=== PATIENT | male | born 1955 | race Caucasian/White ===

== ENCOUNTER → 2016-09-19 | Outpatient (CLI) | payer BC ==
[~2016-09-19] MED LIST: CPR500 PO; MULT-221 PO
[2016-09-19 13:59] LABS: BASO % 0.3 %; BASO ABS # 0.02 K/uL (0-0.2); COMPLETE YES; EOS % 1.7 %; IG% 0.1 %; LYMPH % 27.5 %; LYMPH ABS # 1.91 K/uL (1.2-3.4); MEAN CELL VOLUME 90.1 fL (80-100); MEAN CORPUSCULAR HEMOGLOBIN 31.3 pg (25-34); MEAN CORPUSCULAR HGB CONC 34.8 g/dl (32-36); MEAN PLATELET VOLUME 11.7 fL (7.4-10.4); MONO % 8.6 %; NEUT % 61.8 %; PLATELET COUNT 237 K/uL (130-400); RED BLOOD COUNT 5.33 M/uL (4.7-6.1); WHITE BLOOD COUNT 6.94 K/uL (4.8-10.8)
[2016-09-19 14:37] LABS: ALKALINE PHOSPHATASE 108 U/L (45-117); ALT/SGPT 31 U/L (12-78); BLOOD UREA NITROGEN 10 mg/dl (7-18); BUN/CREATININE RATIO 9.1 (10-20); CALCIUM 9.3 mg/dl (8.5-10.1); CARBON DIOXIDE 31 mmol/L (21-32); CHLORIDE 101 mmol/L (98-107); CHOLESTEROL 195 mg/dl (0-200); CHOLESTEROL/HDL RATIO 5.6; GLUCOSE 106 mg/dl (70-99); HDL CHOLESTEROL 35 mg/dl; LDL CHOLESTEROL CALCULATED 94 mg/dl; POTASSIUM 4.6 mmol/L (3.5-5.1); SODIUM 140 mmol/L (136-145); TRIGLYCERIDES 329 mg/dl (0-150); VERY LOW DENSITY LIPOPROT CALC 66 mg/dl
[2016-09-19 14:39] LABS: ALB/GLOB RATIO 1.1 (0.9-2); AST/SGOT 20 U/L (15-37)
== END | disposition home or self-care (01) ==
LOC: C.LABSPEC 13:34
PROVIDERS: ATTEND Family Medicine
DX: I10 Essential (primary) hypertension (principal); E78.2 Mixed hyperlipidemia

== ENCOUNTER 2017-05-11 13:08 | Emergency (ER) | payer BC ==
[~2017-05-11] VITALS: Ht 180.3 cm; Wt 85.3 kg
[2017-05-11 13:21] VITALS: Ht 180.3 cm; Wt 85.3 kg
--- NOTE | 2017-05-11 13:48 | EMERGENCY ROOM VISIT NOTE ---
History First contact with patient: 13:29 Chief Complaint: ABDOMINAL PAIN Stated Complaint: STOMACH PAIN, UNABLE TO MOVE BOWELS History of Present Illness The patient is a 62 year old male who presents to the Emergency Room with complaints of lower abdominal pain associated with constipation. The patient states he has not moved his bowels in 5 days. He does have a history of diverticulitis, and states his pain is consistent with that previous infection. The patient states the constipation started, then he began experiencing lower abdominal pain last night. He did try taking Maalox, and that did allow him to pass gas, however he only moved clear, slightly slimy liquid from his bowels. He did vomit twice, but states last night it was associated with eating, and this morning it was associated with gagging himself while brushing his teeth. The patient describes the pain as suprapubic, and states it is sharp in nature. He has taken no medication for his pain. He admits to chills, but denies any fever. The patient denies any chest pain, difficulty breathing, urinary symptoms including dysuria, retention, or discharge in his urine. The patient denies any recent diarrhea, upper respiratory infection symptoms, or cough. Review of Systems A complete 10 point review of systems was reviewed with the patient with pertinent positives and negatives as per history of present illness. All else were negative. Social History Smoking Status: Current Every Day Smoker Alcohol Use: none Drug Use: none Marital Status: Housing Status: lives with family Occupation Status: retired Current/Historical Medications Scheduled Atorvastatin (Atorvastatin Calcium), 10 MG PO DAILY Ciprofloxacin Hcl (Cipro), 500 MG PO BID Lisinopril (Lisinopril), 40 MG PO DAILY Metronidazole (Flagyl), 500 MG PO TID Ondasetron Odt (Zofran Odt), 4 MG SL Q6H Scheduled PRN Meclizine HCl (Meclizine HCl), 25 MG PO TID PRN for Muscle Spasms Allergies Coded Allergies: No Known Allergies (Unverified , 12/01/14) Physical Exam Vital Signs Date Time Temp Pulse Resp B/P (MAP) Pulse Ox O2 Delivery O2 Flow Rate FiO2 05/11/17 17:00 37.1 88 18 121/62 98 05/11/17 16:19 92 18 121/62 Room Air 05/11/17 15:05 68 18 140/74 98 Room Air 05/11/17 13:21 37.5 115 18 136/80 91 Room Air Physical Exam VITALS: Vitals are noted on the nurse's note and reviewed by myself. Vital signs stable. GENERAL: This is a 62-year-old obese white male, in no acute distress, nondiaphoretic, well-developed well-nourished. SKIN: The skin was without rashes, erythema, edema, or bruising. There is no tenting of the skin. Capillary reflex less than 2 seconds. HEAD: Normocephalic atraumatic. EARS: External auditory canals clear, tympanic membranes pearly hunter without erythema or effusion bilaterally. EYES: Pupils equal round and reactive to light and accommodation. Conjunctivae without injection, sclerae without icterus. Extraocular movements intact. NOSE: Patent, turbinates without inflammation or discharge. No sinus tenderness. MOUTH: Mucous membranes moist. Tonsils are not enlarged. Pharynx without erythema or exudate. Uvula midline. Airway patent. Tongue does not deviate. NECK: Supple without nuchal rigidity. No lymphadenopathy. No thyromegaly. Cervical spine is nontender. No JVD. HEART: Regular rate and rhythm without murmurs gallops or rubs. LUNGS: Clear to auscultation bilaterally without wheezes, rales or rhonchi. No dullness to percussion. No retractions or accessory muscle use. ABDOMEN: Positive, but hypoactive, bowel sounds x 4. Normal tympanic percussion. Firm in the lower abdomen and tender to palpation. The upper abdomen was soft and nontender. The entire abdomen was without masses or organomegaly. Scott sign negative. No guarding or rebound tenderness. MUSCULOSKELETAL: No muscle atrophy, erythema, or edema noted. Full range of motion without joint tenderness in all extremities. No tenderness to palpation. Normal gait. Strength 5/5 throughout. NEURO: Patient was alert and oriented to person place and time. Normal sensation to light and sharp touch. Deep tendon reflexes 2+ throughout. No focal neurological deficits. Medical Decision & Procedures ER Provider Diagnostic Interpretation: CBC was without significant leukocytosis, anemia, thrombocytopenia. CMP does not show any significant electrolyte abnormality. Renal and hepatic function were normal. Lipase was negative. Urinalysis does appear to be contaminated, however does not show absolute signs of urinary tract infection. The patient does have trace ketones, trace blood, mucus, and epithelial cells. I do feel that this is related to the patient's dehydration, as he admits to not drinking much over the past few days. CT ABD/PELVIS WITH IV AND PO CONTRAST: ABD/PELVIS IV AND ORAL CONT CT DOSE: 394.68 mGy.cm HISTORY: Pain lower abdominal pain, constipation, hx. Diverticulitis TECHNIQUE: Multiaxial CT images of the abdomen and pelvis were performed following the use of intravenous and oral contrast. A dose lowering technique was utilized adhering to the principles of ALARA. COMPARISON STUDY: 12/01/2014 FINDINGS: Mild bibasilar dependent atelectasis. Liver spleen and pancreas appear unremarkable. Lower pole right renal cyst as well as a indeterminate 1 cm nodular density lower aspect right kidney posteriorly. This is unchanged. The bowel pattern indicates acute sigmoid diverticulitis. Considerable wall thickening. There is a least moderate pericolonic infiltrative change. There is no evidence for abscess collection or obstructive change. No significant bowel distention IMPRESSION: 1. Acute sigmoid diverticulitis. 2. No evidence for abscess collection or obstruction. 3. Right renal cyst as well as an indeterminate 1 cm nodular density right renal inferior margin which has remained unchanged from the prior study. The above report was generated using voice recognition software. It may contain grammatical, syntax or spelling errors. Electronically signed by: Derrick Segal M.D. 05/11/2017 4:21 PM Dictated Date/Time: 05/11/2017 4:10 PM Laboratory Results 05/11/17 13:57 Red Blood Count 5.31, Mean Corpuscular Volume 89.3, Mean Corpuscular Hemoglobin 31.1, Mean Corpuscular Hemoglobin Concent 34.8, Mean Platelet Volume 11.4, Neutrophils (%) (Auto) 85.2, Lymphocytes (%) (Auto) 6.5, Monocytes (%) (Auto) 7.6, Eosinophils (%) (Auto) 0.1, Basophils (%) (Auto) 0.2, Neutrophils # (Auto) 9.25, Lymphocytes # (Auto) 0.71, Monocytes # (Auto) 0.82, Eosinophils # (Auto) 0.01, Basophils # (Auto) 0.02 05/11/17 13:57 Test 05/11/17 13:57 05/11/17 14:00 White Blood Count 10.85 K/uL (4.8-10.8) Red Blood Count 5.31 M/uL (4.7-6.1) Hemoglobin 16.5 g/dL (14.0-18.0) Hematocrit 47.4 % (42-52) Mean Corpuscular Volume 89.3 fL (80-100) Mean Corpuscular Hemoglobin 31.1 pg (25-34) Mean Corpuscular Hemoglobin Concent 34.8 g/dl (32-36) Platelet Count 202 K/uL (130-400) Mean Platelet Volume 11.4 fL (7.4-10.4) Neutrophils (%) (Auto) 85.2 % Lymphocytes (%) (Auto) 6.5 % Monocytes (%) (Auto) 7.6 % Eosinophils (%) (Auto) 0.1 % Basophils (%) (Auto) 0.2 % Neutrophils # (Auto) 9.25 K/uL (1.4-6.5) Lymphocytes # (Auto) 0.71 K/uL (1.2-3.4) Monocytes # (Auto) 0.82 K/uL (0.11-0.59) Eosinophils # (Auto) 0.01 K/uL (0-0.5) Basophils # (Auto) 0.02 K/uL (0-0.2) RDW Standard Deviation 45.2 fL (36.4-46.3) RDW Coefficient of Variation 13.9 % (11.5-14.5) Immature Granulocyte % (Auto) 0.4 % Immature Granulocyte # (Auto) 0.04 K/uL (0.00-0.02) Anion Gap 6.0 mmol/L (3-11) Est Creatinine Clear Calc Drug Dose 72.2 ml/min Estimated GFR () 80.3 Estimated GFR (Non- 69.3 BUN/Creatinine Ratio 7.2 (10-20) Calcium Level 9.0 mg/dl (8.5-10.1) Total Bilirubin 0.8 mg/dl (0.2-1) Aspartate Amino Transf (AST/SGOT) 10 U/L (15-37) Alanine Aminotransferase (ALT/SGPT) 21 U/L (12-78) Alkaline Phosphatase 113 U/L (45-117) Total Protein 7.9 gm/dl (6.4-8.2) Albumin 3.8 gm/dl (3.4-5.0) Globulin 4.1 gm/dl (2.5-4.0) Albumin/Globulin Ratio 0.9 (0.9-2) Lipase 86 U/L (73-393) Urine Color ORANGE Urine Appearance CLOUDY (CLEAR) Urine pH >= 9.0 (4.5-7.5) Urine Specific [place] 1.022 (1.000-1.030) Urine Protein 2+ (NEG) Urine Glucose (UA) NEG (NEG) Urine Ketones TRACE (NEG) Urine Occult Blood TRACE (NEG) Urine Nitrite NEG (NEG) Urine Bilirubin NEG (NEG) Urine Urobilinogen NEG (NEG) Urine Leukocyte Esterase TRACE (NEG) Urine WBC (Auto) 1-5 /hpf (0-5) Urine RBC (Auto) 10-30 /hpf (0-4) Urine Hyaline Casts (Auto) 5-10 /lpf (0-5) Urine Epithelial Cells (Auto) >30 /lpf (0-5) Urine Bacteria (Auto) NEG (NEG) Urine Renal Epithelial Cells /lpf (0-5) Urine Pathogenic Casts /lpf (0) Urine Mucus PRESENT (NONE PRSENT) Urine Yeast (Auto) (NONE PRSENT) Medications Administered Medications (Trade) Dose Ordered Sig/Ruslan Route Start Time Stop Time Status Last Admin Dose Admin Ciprofloxacin (Cipro Tab) 500 mg NOW STAT PO 05/11/17 16:36 05/11/17 16:41 DC 05/11/17 16:57 500 MG Metronidazole (Flagyl Tab) 500 mg NOW STAT PO 05/11/17 16:36 05/11/17 16:41 DC 05/11/17 16:56 500 MG Medical Decision The patient presents today complaining of lower abdominal pain associated with constipation 5 days. He does have a history of diverticulitis, and as he does not believe his previous history of diverticulitis was associated with the patient, he does feel that this symptoms are similar. Based on his labs, examination, and CT scan, I do feel that this is an acute diverticulitis. He scan did not reveal any abscess, and the patient does not appear to be septic or systemically ill. I had a lengthy discussion with the patient and his at bedside regarding proper management at this time. I offered admission versus outpatient treatment with oral antibiotics. The patient and his do feel comfortable managing this outpatient at this time, and I feel that this is appropriate given the patient's very mild elevated white blood cell count and no abscess on CT scan. The patient was given his first dose of Flagyl and Cipro in the emergency department. Throughout the course of his care, I did offer pain medication, and he declined. Prescriptions were sent, and discharge instructions were reviewed. The patient was discharged home in good condition. I did discuss findings of right renal cyst and nodular density of the right renal inferior margin with the patient. I advised him that this is unchanged from his previous study. I did encourage outpatient follow-up with his PCP. I did discuss the case with my attending, Dr. Freeman, who is in agreement with the assessment and plan. Differential diagnosis includes diverticulitis, bowel obstruction, gastroenteritis, urinary tract infection, appendicitis, cholecystitis, pancreatitis, malignancy, and others I attest that I have personally reviewed the patient's current medication list. Patient was found to have normal blood pressure on screening and does not require follow-up. Impression Primary Impression: Diverticulitis Departure Information Dispostion Home / Self-Care Condition GOOD Prescriptions Ondasetron Odt (ZOFRAN ODT) 4 Mg Tab 4 MG SL Q6H for Nausea, #6 TAB Prov: Rosa Marie PA-C 05/11/17 Metronidazole (Flagyl) 500 Mg Tab 500 MG PO TID for 10 Days, #30 TAB Prov: Rosa Marie PA-C 05/11/17 Ciprofloxacin Hcl (CIPRO) 500 Mg Tab 500 MG PO BID for 10 Days, #20 TAB Prov: Rosa Marie PA-C 05/11/17 Referrals Jose David Sung M.D. ([facility] (PCP) Patient Instructions ED Diverticulitis, My [facility] Additional Instructions You were seen in the emergency department today for diverticulitis. CT scan did confirm this diagnosis and did rule out abscess or obstruction. Please take Cipro and Flagyl as prescribed for 10 days. All antibiotics can potentially cause diarrhea. He may want to consider a probiotic to help. Do not drink alcohol while taking these antibiotics. You were prescribed Zofran to be used for nausea and/or vomiting. Please take this medication as prescribed. He may use Tylenol 500-1000 mg every 6-8 hours for pain. Please do not exceed 3000mg daily. Please consume only a clear liquid diet for at least the next 2-3 days, or until you're not experiencing any further abdominal discomfort. If you experience worsening pain, fever, chills, nausea, vomiting, blood or pus in your stool, or other concerning symptoms, return immediately to the emergency department for further evaluation. Please follow up with your PCP in 2-3 days for recheck of your symptoms. Work Instructions Return To Work: 2 days Problem Qualifiers Primary Impression: Diverticulitis Diverticulitis site: large intestine Diverticulitis bleeding: without bleeding Diverticulitis complication: without perforation or abscess Qualified Codes: K57.32 - Diverticulitis of large intestine without perforation or abscess without bleeding
[2017-05-11] MEDS ORDERED: OPTIRAY 320 IV PRN (14:15)
[2017-05-11 14:17] LABS: BASO % 0.2 %; BASO ABS # 0.02 K/uL (0-0.2); COMPLETE YES; EOS % 0.1 %; HEMATOCRIT 47.4 % (42-52); IG% 0.4 %; LYMPH % 6.5 %; LYMPH ABS # 0.71 K/uL (1.2-3.4); MEAN CELL VOLUME 89.3 fL (80-100); MEAN CORPUSCULAR HEMOGLOBIN 31.1 pg (25-34); MEAN CORPUSCULAR HGB CONC 34.8 g/dl (32-36); MEAN PLATELET VOLUME 11.4 fL (7.4-10.4); MONO % 7.6 %; NEUT % 85.2 %; PLATELET COUNT 202 K/uL (130-400); RED BLOOD COUNT 5.31 M/uL (4.7-6.1); WHITE BLOOD COUNT 10.85 K/uL (4.8-10.8)
[2017-05-11 14:17] LABS: URINE APPEARANCE CLOUDY (CLEAR); URINE COLOR ORANGE; URINE EPITHELIAL CELL AUTO >30 /lpf (0-5); URINE NITRITE NEG (NEG); URINE PH >= 9.0 (4.5-7.5); URINE SPECIFIC GRAVITY 1.022 (1.000-1.030); UROBILINOGEN NEG (NEG); ZZUR CULT IF INDIC CLEAN CATCH YES
[2017-05-11 14:28] LABS: MANUAL MICROSCOPIC REQUIRED? NO; REVIEW REQ? YES; SULFASALICYLIC ACID POS (NEG); URINE BILIRUBIN NEG (NEG)
[2017-05-11 14:29] LABS: URINE MUCUS PRESENT (NONE PRSENT)
[2017-05-11 14:42] LABS: BUN/CREATININE RATIO 7.2 (10-20); CREATININE 1.13 mg/dl (0.60-1.40); POTASSIUM 4.1 mmol/L (3.5-5.1)
[2017-05-11 14:45] LABS: ALB/GLOB RATIO 0.9 (0.9-2)
[2017-05-11] MEDS ORDERED: LSN40 PO (14:55)
[2017-05-11] MEDS ORDERED: ANT25 PO (14:55)
[2017-05-11] MEDS ORDERED: LPT10 PO (14:55)
--- NOTE | 2017-05-11 16:22 | DIAGNOSTIC IMAGING REPORT ---
ABD/PELVIS IV AND ORAL CONT CT DOSE: 394.68 mGy.cm HISTORY: Pain lower abdominal pain, constipation, hx. Diverticulitis TECHNIQUE: Multiaxial CT images of the abdomen and pelvis were performed following the use of intravenous and oral contrast. A dose lowering technique was utilized adhering to the principles of ALARA. COMPARISON STUDY: 12/01/2014 FINDINGS: Mild bibasilar dependent atelectasis. Liver spleen and pancreas appear unremarkable. Lower pole right renal cyst as well as a indeterminate 1 cm nodular density lower aspect right kidney posteriorly. This is unchanged. The bowel pattern indicates acute sigmoid diverticulitis. Considerable wall thickening. There is a least moderate pericolonic infiltrative change. There is no evidence for abscess collection or obstructive change. No significant bowel distention IMPRESSION: 1. Acute sigmoid diverticulitis. 2. No evidence for abscess collection or obstruction. 3. Right renal cyst as well as an indeterminate 1 cm nodular density right renal inferior margin which has remained unchanged from the prior study. The above report was generated using voice recognition software. It may contain grammatical, syntax or spelling errors. Electronically signed by: Derrick Segal M.D. 05/11/2017 4:21 PM Dictated Date/Time: 05/11/2017 4:10 PM
[2017-05-11] MEDS ORDERED: CIPROFLOXACIN 500 MG TAB PO STA (16:36)
[2017-05-11] MEDS ORDERED: METRONIDAZOLE 250 MG TAB PO STA (16:36)
[2017-05-11] MEDS ORDERED: METR-163 PO (16:42)
[2017-05-11] MEDS ORDERED: CIPR-255 PO (16:42)
[2017-05-11] MEDS ORDERED: ONDA4TAB10 SL (16:44)
[2017-05-11 17:00] VITALS: BP 121/62; PULSE 88; TEMP 37.1; O2SAT 98
== END 2017-05-11 17:02 | disposition home or self-care (01) ==
LOC: C.EDB 13:11 → C.EDC 17:02
DX: K57.32 Diverticulitis of large intestine without perforation or abscess without bleeding (principal); F17.210 Nicotine dependence, cigarettes, uncomplicated; Z79.899 Other long term (current) drug therapy

== ENCOUNTER → 2017-10-21 | Outpatient (CLI) | payer BC ==
[~2017-10-21] MED LIST changes: +ANT25 PO; +CIPR-255 PO; -CPR500 PO; +LPT10 PO; +LSN40 PO; -MULT-221 PO; +ONDA4TAB10 SL
[2017-10-21 14:11] LABS: BASO % 0.4 %; BASO ABS # 0.02 K/uL (0-0.2); EOS % 1.9 %; HEMATOCRIT 46.9 % (42-52); IG# 0.01 K/uL (0.00-0.02); LYMPH % 34.2 %; LYMPH ABS # 1.79 K/uL (1.2-3.4); MEAN CELL VOLUME 89.2 fL (80-100); MEAN CORPUSCULAR HEMOGLOBIN 30.4 pg (25-34); MEAN CORPUSCULAR HGB CONC 34.1 g/dl (32-36); MEAN PLATELET VOLUME 11.5 fL (7.4-10.4); MONO % 8.6 %; MONO ABS # 0.45 K/uL (0.11-0.59); NEUT % 54.7 %; NEUT ABS # 2.86 K/uL (1.4-6.5); PLATELET COUNT 238 K/uL (130-400); RED CELL DISTRIBUTION WIDTH SD 45.4 fL (36.4-46.3); WHITE BLOOD COUNT 5.23 K/uL (4.8-10.8)
[2017-10-21 14:48] LABS: ALBUMIN 3.6 gm/dl (3.4-5.0); ALT/SGPT 28 U/L (12-78); AST/SGOT 16 U/L (15-37); BLOOD UREA NITROGEN 10 mg/dl (7-18); CARBON DIOXIDE 32 mmol/L (21-32); CREATININE 1.03 mg/dl (0.60-1.40); GLUCOSE 103 mg/dl (70-99); POTASSIUM 4.2 mmol/L (3.5-5.1); SODIUM 135 mmol/L (136-145)
[2017-10-21 14:51] LABS: ALKALINE PHOSPHATASE 103 U/L (45-117); CHOLESTEROL 220 mg/dl (0-200); LDL CHOLESTEROL CALCULATED 139 mg/dl; TOTAL PROTEIN 7.4 gm/dl (6.4-8.2)
== END | disposition home or self-care (01) ==
LOC: C.LABSPEC 13:00
PROVIDERS: ATTEND Family Medicine
DX: E78.2 Mixed hyperlipidemia (principal); I10 Essential (primary) hypertension

== ENCOUNTER 2017-11-10 18:02 | Emergency (ER) | payer BC ==
[~2017-11-10] VITALS: Ht 180.3 cm; Wt 86.7 kg
[2017-11-10 18:14] VITALS: TEMP 36.9; Ht 180.3 cm; Wt 86.7 kg
[2017-11-10 18:35] VITALS: O2SAT 93
--- NOTE | 2017-11-10 18:40 | EMERGENCY ROOM VISIT NOTE ---
History Report prepared by Kelley: Lisa Whiting Under the Supervision of: Jorge LunaO. First contact with patient: 18:17 Chief Complaint: SHORTNESS OF BREATH Stated Complaint: SOB,VISION PROBLEM,BP HIGH History of Present Illness The patient is a 62 year old male who presents to the Emergency Room with complaints of persistent vision problems which began this morning. He reports that this morning when he woke up, he was having difficulty focusing his vision , noting that the left eye was worse than right. The patient states that his symptoms resolved on their own, until several hours later when he was doing yard work with his neighbor, stating that the vision problems returned and resolved on their own again. He denies any nausea, headaches, chest pain, or weakness in his arms or legs. The patient states that he has not had any energy lately, noting that he has been sleeping much more than usual and has been experiencing intermittent neck and pain in his right leg. He reports a history high cholesterol and hypertension, noting that he experiences frequent shortness of breath but thinks that is related to him smoking a pack of cigarettes a day. The patient denies a history of strokes. Source of History: patient Onset: this morning Position: eye (left) Quality: other (vision problems) Timing: other (persistent) Associated Symptoms: + SOB, No headache, No chest pain, No nausea, No weakness Review of Systems See HPI for pertinent positives & negatives. A total of 10 systems reviewed and were otherwise negative. Past Medical & Surgical Medical Problems: (1) High cholesterol (2) Hypertension Surgical Problems: (1) History of appendectomy (2) History of tonsillectomy Family History Cancer Diabetes mellitus Heart disease Hypertension Lung disease Social History Smoking Status: Current Every Day Smoker Alcohol Use: none Drug Use: none Marital Status: Housing Status: lives with family Occupation Status: retired Current/Historical Medications Scheduled Atorvastatin (Lipitor), 10 MG PO DAILY Ciprofloxacin Hcl (Cipro), 500 MG PO BID Lisinopril (Lisinopril), 40 MG PO DAILY Ondasetron Odt (Zofran Odt), 4 MG SL Q6H Scheduled PRN Meclizine HCl (Meclizine HCl), 25 MG PO TID PRN for Muscle Spasms Allergies Coded Allergies: No Known Allergies (Unverified , 5/21/15) Physical Exam Vital Signs Date Time Temp Pulse Resp B/P (MAP) Pulse Ox O2 Delivery O2 Flow Rate FiO2 11/10/17 20:26 64 19 173/99 94 11/10/17 19:14 68 20 174/93 95 Room Air 11/10/17 18:35 93 Room Air 11/10/17 18:35 Room Air 11/10/17 18:25 82 11/10/17 18:14 36.9 79 20 187/88 95 Room Air Physical Exam GENERAL: Patient is awake, alert, and in no acute distress. Patient is resting comfortably and showing no signs of anxiety EYES: The conjunctivae are clear. The pupils are round and reactive. EARS, NOSE, MOUTH AND THROAT: The nose is without any evidence of any deformity. Mucous membranes are moist tongue is midline NECK: The neck is nontender and supple. RESPIRATORY: Normal respiratory effort is noted there is no evidence of wheezing rhonchi or rales CARDIOVASCULAR: Regular rate and rhythm noted there no murmurs rubs or gallops normal S1 normal S2 GASTROINTESTINAL: The abdomen is soft. Bowel sounds are present in all quadrants. Abdomen is nontender MUSCULOSKELETAL/EXTREMITIES: There is no evidence of gross deformity full range of motion is noted in the hips and shoulders SKIN: There is no obvious evidence of any rash. There are no petechiae, pallor or cyanosis noted. NEUROLOGIC: No drift in upper extremities. Patient is awake alert and oriented x3 strength is symmetric patellar reflexes are 2+ bilaterally Medical Decision & Procedures ER Provider Diagnostic Interpretation: Radiology results as stated below per my review and radiologist interpretation: CHEST ONE VIEW PORTABLE CLINICAL HISTORY: EVALUATE ALTERED MENTAL STATUS/WEAKNESS COMPARISON STUDY: No previous studies for comparison. FINDINGS: The bones soft tissues and hemidiaphragms are normal. The cardiomediastinal silhouette is normal. The lungs are clear. The pulmonary vasculature is normal. IMPRESSION: Negative chest. The above report was generated using voice recognition software. It may contain grammatical, syntax or spelling errors. Electronically signed by: Derrick Segal M.D. 11/10/2017 6:46 PM Dictated Date/Time: 11/10/2017 6:46 PM HEAD WITHOUT CONTRAST (CT) CT DOSE: 580.48 mGy.cm HISTORY: Mental status change EVALUATE ALTERED MENTAL STATUS/WEAKNESS TECHNIQUE: Multiaxial CT images of the head were performed without the use of intravenous contrast. A dose lowering technique was utilized adhering to the principles of ALARA. Comparison: None. Findings: The paranasal sinuses and mastoid air cells are clear. The calvarium and skull base are intact. The ventricles and sulci are within normal limits. There is no mass, hematoma, midline shift, or acute infarct. 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 Impression: No acute intracranial abnormality. 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 The above report was generated using voice recognition software. It may contain grammatical, syntax or spelling errors. Electronically signed by: Derrick Segal M.D. 11/10/2017 7:08 PM Dictated Date/Time: 11/10/2017 7:07 PM Laboratory Results 11/10/17 18:35 Red Blood Count 5.12, Mean Corpuscular Volume 88.5, Mean Corpuscular Hemoglobin 30.5, Mean Corpuscular Hemoglobin Concent 34.4, Mean Platelet Volume 10.8, Neutrophils (%) (Auto) 71.2, Lymphocytes (%) (Auto) 20.7, Monocytes (%) (Auto) 6.7, Eosinophils (%) (Auto) 0.8, Basophils (%) (Auto) 0.3, Neutrophils # (Auto) 6.72, Lymphocytes # (Auto) 1.96, Monocytes # (Auto) 0.63, Eosinophils # (Auto) 0.08, Basophils # (Auto) 0.03 11/10/17 18:35 Test 11/10/17 18:35 11/10/17 19:10 White Blood Count 9.45 K/uL (4.8-10.8) Red Blood Count 5.12 M/uL (4.7-6.1) Hemoglobin 15.6 g/dL (14.0-18.0) Hematocrit 45.3 % (42-52) Mean Corpuscular Volume 88.5 fL (80-100) Mean Corpuscular Hemoglobin 30.5 pg (25-34) Mean Corpuscular Hemoglobin Concent 34.4 g/dl (32-36) Platelet Count 244 K/uL (130-400) Mean Platelet Volume 10.8 fL (7.4-10.4) Neutrophils (%) (Auto) 71.2 % Lymphocytes (%) (Auto) 20.7 % Monocytes (%) (Auto) 6.7 % Eosinophils (%) (Auto) 0.8 % Basophils (%) (Auto) 0.3 % Neutrophils # (Auto) 6.72 K/uL (1.4-6.5) Lymphocytes # (Auto) 1.96 K/uL (1.2-3.4) Monocytes # (Auto) 0.63 K/uL (0.11-0.59) Eosinophils # (Auto) 0.08 K/uL (0-0.5) Basophils # (Auto) 0.03 K/uL (0-0.2) RDW Standard Deviation 45.0 fL (36.4-46.3) RDW Coefficient of Variation 14.0 % (11.5-14.5) Immature Granulocyte % (Auto) 0.3 % Immature Granulocyte # (Auto) 0.03 K/uL (0.00-0.02) Prothrombin Time 10.2 SECONDS (9.0-12.0) Prothromb Time International Ratio 1.0 (0.9-1.1) Activated Partial Thromboplast Time 29.9 SECONDS (21.0-31.0) Partial Thromboplastin Ratio 1.2 Anion Gap 7.0 mmol/L (3-11) Est Creatinine Clear Calc Drug Dose 80.7 ml/min Estimated GFR () 92.0 Estimated GFR (Non- 79.3 BUN/Creatinine Ratio 10.2 (10-20) Calcium Level 8.9 mg/dl (8.5-10.1) Magnesium Level 2.3 mg/dl (1.8-2.4) Total Bilirubin 0.2 mg/dl (0.2-1) Direct Bilirubin < 0.1 mg/dl (0-0.2) Aspartate Amino Transf (AST/SGOT) 15 U/L (15-37) Alanine Aminotransferase (ALT/SGPT) 28 U/L (12-78) Alkaline Phosphatase 99 U/L (45-117) Troponin I < 0.015 ng/ml (0-0.045) Total Protein 7.4 gm/dl (6.4-8.2) Albumin 3.5 gm/dl (3.4-5.0) Thyroid Stimulating Hormone (TSH) 0.946 uIu/ml (0.300-4.500) Urine Color YELLOW Urine Appearance CLEAR (CLEAR) Urine pH 7.5 (4.5-7.5) Urine Specific [place] 1.010 (1.000-1.030) Urine Protein NEG (NEG) Urine Glucose (UA) NEG (NEG) Urine Ketones NEG (NEG) Urine Occult Blood TRACE (NEG) Urine Nitrite NEG (NEG) Urine Bilirubin NEG (NEG) Urine Urobilinogen NEG (NEG) Urine Leukocyte Esterase NEG (NEG) Urine WBC (Auto) 1-5 /hpf (0-5) Urine RBC (Auto) 0-4 /hpf (0-4) Urine Hyaline Casts (Auto) 0 /lpf (0-5) Urine Epithelial Cells (Auto) 0-5 /lpf (0-5) Urine Bacteria (Auto) NEG (NEG) Laboratory results per my review. ECG Per My Interpretation Indication: weakness Rate (beats per minute): 70 Rhythm: normal sinus Findings: no ectopy, other (no acute ST segments) Change: no significant change (no changes from 05/11/17) ED Course 1817: The patient was evaluated in room C6. A complete history and physical examination were performed. 2009: Upon reevaluation, the patient is resting comfortably. I discussed the results and treatment plan with him. He verbalized agreement of the treatment plan. The patient was discharged home. Medical Decision Prior records/ancillary studies reviewed and summarized above. Nursing notes reviewed. Additional history obtained from his . Differential diagnosis: Etiologies such as metabolic, infection, hypo/hyperglycemia, electrolyte abnormalities, cardiac sources, intracerebral event, toxicologic, neurologic, as well as others were entertained. The patient is a 62-year-old male who presented to the emergency department for an evaluation of multiple complaints. The patient has no focal neurologic deficits at this time. He has no meningismus. The patient's was concerned that he may have something neurologic occurring. He has been complaining of generalized weakness as well. I discussed patient's laboratory and radiographic studies with him. At this time no acute abnormalities were noted but he has had evidence of previous CVA noted on CAT scan. The patient was advised to follow-up with his primary care physician for further evaluation. He was encouraged to discuss further testing such as MRI echocardiogram and carotid Dopplers. He was encouraged to rest and avoid any strenuous activity. He was also encouraged to return to the emergency department immediately if symptoms change worsen or the need arises. Medication Reconcilliation Current Medication List: was personally reviewed by me Blood Pressure Screening Patient's blood pressure: Elevated blood pressure Blood pressure disposition: Referred to PCP Impression Primary Impression: Dizziness Additional Impression: TIA (transient ischemic attack) Scribe Attestation The scribe's documentation has been prepared under my direction and personally reviewed by me in its entirety. I confirm that the note above accurately reflects all work, treatment, procedures, and medical decision making performed by me. Departure Information Dispostion Home / Self-Care Referrals Jose David Sung M.D.[email or web address]) (PCP) Forms HOME CARE DOCUMENTATION FORM, IMPORTANT VISIT INFORMATION Patient Instructions My [facility] Additional Instructions Continue all medications as prescribed. Rest and avoid any strenuous activity. Call your family doctor in the morning to schedule a follow-up appointment. You may require further studies such as an echocardiogram carotid Dopplers and an MRI of the brain to further evaluate cause your symptoms. Return to the emergency department immediately symptoms change worsen or the need arises. Problem Qualifiers Additional Impression: TIA (transient ischemic attack) Transient cerebral ischemia type: unspecified Qualified Codes: G45.9 - Transient cerebral ischemic attack, unspecified
--- NOTE | 2017-11-10 18:47 | DIAGNOSTIC IMAGING REPORT ---
CHEST ONE VIEW PORTABLE CLINICAL HISTORY: EVALUATE ALTERED MENTAL STATUS/WEAKNESS COMPARISON STUDY: No previous studies for comparison. FINDINGS: The bones soft tissues and hemidiaphragms are normal. The cardiomediastinal silhouette is normal. The lungs are clear. The pulmonary vasculature is normal. IMPRESSION: Negative chest. The above report was generated using voice recognition software. It may contain grammatical, syntax or spelling errors. Electronically signed by: Derrick Segal M.D. 11/10/2017 6:46 PM Dictated Date/Time: 11/10/2017 6:46 PM
[2017-11-10 18:53] LABS: BASO % 0.3 %; BASO ABS # 0.03 K/uL (0-0.2); EOS % 0.8 %; EOS ABS # 0.08 K/uL (0-0.5); HEMATOCRIT 45.3 % (42-52); HEMOGLOBIN 15.6 g/dL (14.0-18.0); IG# 0.03 K/uL (0.00-0.02); LYMPH % 20.7 %; LYMPH ABS # 1.96 K/uL (1.2-3.4); MEAN CELL VOLUME 88.5 fL (80-100); MEAN CORPUSCULAR HEMOGLOBIN 30.5 pg (25-34); MEAN CORPUSCULAR HGB CONC 34.4 g/dl (32-36); MEAN PLATELET VOLUME 10.8 fL (7.4-10.4); MONO % 6.7 %; MONO ABS # 0.63 K/uL (0.11-0.59); NEUT % 71.2 %; NEUT ABS # 6.72 K/uL (1.4-6.5); PLATELET COUNT 244 K/uL (130-400); WHITE BLOOD COUNT 9.45 K/uL (4.8-10.8)
[2017-11-10 19:05] LABS: PTT PATIENT 29.9 SECONDS (21.0-31.0)
--- NOTE | 2017-11-10 19:09 | DIAGNOSTIC IMAGING REPORT ---
HEAD WITHOUT CONTRAST (CT) CT DOSE: 580.48 mGy.cm HISTORY: Mental status change EVALUATE ALTERED MENTAL STATUS/WEAKNESS TECHNIQUE: Multiaxial CT images of the head were performed without the use of intravenous contrast. A dose lowering technique was utilized adhering to the principles of ALARA. Comparison: None. Findings: The paranasal sinuses and mastoid air cells are clear. The calvarium and skull base are intact. The ventricles and sulci are within normal limits. There is no mass, hematoma, midline shift, or acute infarct. 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 Impression: No acute intracranial abnormality. 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 The above report was generated using voice recognition software. It may contain grammatical, syntax or spelling errors. Electronically signed by: Derrick Segal M.D. 11/10/2017 7:08 PM Dictated Date/Time: 11/10/2017 7:07 PM
[2017-11-10 19:11] LABS: ALBUMIN 3.5 gm/dl (3.4-5.0); ALT/SGPT 28 U/L (12-78); AST/SGOT 15 U/L (15-37); BLOOD UREA NITROGEN 10 mg/dl (7-18); CALCIUM 8.9 mg/dl (8.5-10.1); CARBON DIOXIDE 30 mmol/L (21-32); CREATININE 1.01 mg/dl (0.60-1.40); GLUCOSE 126 mg/dl (70-99); POTASSIUM 3.4 mmol/L (3.5-5.1); SODIUM 139 mmol/L (136-145)
[2017-11-10 19:22] LABS: ALKALINE PHOSPHATASE 99 U/L (45-117); TOTAL PROTEIN 7.4 gm/dl (6.4-8.2)
[2017-11-10 20:26] VITALS: BP 173/99; PULSE 64; O2SAT 94
== END 2017-11-10 20:27 | disposition home or self-care (01) ==
LOC: C.EDB 18:04 → C.EDC 20:27
DX: G45.9 Transient cerebral ischemic attack, unspecified (principal); E78.00 Pure hypercholesterolemia, unspecified; I10 Essential (primary) hypertension; F17.210 Nicotine dependence, cigarettes, uncomplicated; Z80.9 Family history of malignant neoplasm, unspecified; Z83.3 Family history of diabetes mellitus; Z82.49 Family history of ischemic heart disease and other diseases of the circulatory system; Z79.899 Other long term (current) drug therapy

== ENCOUNTER → 2017-11-13 | Outpatient (CLI) | payer BC ==
[2017-11-13 17:56] LABS: BASO % 0.3 %; BASO ABS # 0.02 K/uL (0-0.2); EOS % 1.5 %; EOS ABS # 0.09 K/uL (0-0.5); HEMATOCRIT 46.8 % (42-52); HEMOGLOBIN 15.9 g/dL (14.0-18.0); IG# 0.01 K/uL (0.00-0.02); LYMPH % 25.9 %; LYMPH ABS # 1.58 K/uL (1.2-3.4); MEAN CELL VOLUME 89.1 fL (80-100); MEAN CORPUSCULAR HEMOGLOBIN 30.3 pg (25-34); MEAN PLATELET VOLUME 11.4 fL (7.4-10.4); MONO % 9.2 %; MONO ABS # 0.56 K/uL (0.11-0.59); NEUT % 62.9 %; NEUT ABS # 3.85 K/uL (1.4-6.5); PLATELET COUNT 275 K/uL (130-400); RED CELL DISTRIBUTION WIDTH CV 14.2 % (11.5-14.5); RED CELL DISTRIBUTION WIDTH SD 45.8 fL (36.4-46.3); WHITE BLOOD COUNT 6.11 K/uL (4.8-10.8)
[2017-11-13 18:07] LABS: ALBUMIN 3.5 gm/dl (3.4-5.0); ALT/SGPT 29 U/L (12-78); AST/SGOT 19 U/L (15-37); BLOOD UREA NITROGEN 8 mg/dl (7-18); CALCIUM 8.7 mg/dl (8.5-10.1); CARBON DIOXIDE 32 mmol/L (21-32); CREATININE 1.12 mg/dl (0.60-1.40); GLUCOSE 123 mg/dl (70-99); POTASSIUM 3.9 mmol/L (3.5-5.1); SODIUM 135 mmol/L (136-145)
[2017-11-13 18:17] LABS: ALKALINE PHOSPHATASE 105 U/L (45-117); TOTAL PROTEIN 7.5 gm/dl (6.4-8.2)
== END | disposition home or self-care (01) ==
LOC: C.LABSPEC 17:33
PROVIDERS: ATTEND Family Medicine
DX: R53.83 Other fatigue (principal)

== ENCOUNTER → 2017-11-18 | Outpatient (CLI) | payer BC ==
[~2017-11-18] MED LIST changes: +GADAVIST IV PRN; -ONDA4TAB10 SL
--- NOTE | 2017-11-18 08:03 | DIAGNOSTIC IMAGING REPORT ---
ORBIT RADIOGRAPHS 3 VIEWS HISTORY: pre-MRI screening. COMPARISON: None. FINDINGS: There are no radiopaque foreign bodies identified within the orbits. IMPRESSION: No radiopaque foreign bodies identified within the orbits. Electronically signed by: Slick Watkins M.D. 11/18/2017 8:02 AM Dictated Date/Time: 11/18/2017 8:02 AM
--- NOTE | 2017-11-18 10:07 | DIAGNOSTIC IMAGING REPORT ---
Brain MRI WITH AND WITHOUT CONTRAST HISTORY: Left leg and left arm pain. Blurred vision. ESSENTIAL PRIMARY HYPERTENSION, TIA TECHNIQUE: Multiplanar multisequence MRI of the brain was performed both before and after the intravenous administration of contrast. COMPARISON STUDY: Head CT 11/10/2017. FINDINGS: Punctate focus of restricted diffusion seen within the periventricular location of the right temporal lobe. This is best seen on image 11 of 48. This is consistent with a small acute infarct. The midline structures are intact. Multiple scattered punctate foci of T2 hyperintensity seen within the white matter of the supratentorial brain. These are nonspecific but favor microvascular ischemic change. Incidental noted is made of a 1 cm Thornwaldt cyst. There are small retention cyst within the maxillary sinuses. Small fluid level within the right sphenoid sinus and right posterior ethmoid air cells. The mastoid air cells are clear. The major vascular flow-voids at the skull base are well-maintained. Old infarct within the left caudate head is again noted. There is no mass, hematoma, or midline shift. Prominent perivascular space within the white matter the right frontal lobe on image 17 of 25. No abnormal enhancement. IMPRESSION: 1. Punctate acute infarct seen within the periventricular location of the right temporal lobe. 2. Multiple scattered punctate foci of T2 hyperintensity seen within the white matter of the supratentorial brain. These are nonspecific but favor microvascular ischemic change. A vasculitis, a demyelinating disease, or Lyme disease could also have a similar appearance. 3. These findings were called/faxed to the referring physician's office following dictation. Electronically signed by: Slick Watknis M.D. 11/18/2017 10:06 AM Dictated Date/Time: 11/18/2017 9:48 AM
--- NOTE | 2017-11-18 10:32 | DIAGNOSTIC IMAGING REPORT ---
BILATERAL CAROTID DOPPLER STUDY HISTORY: Stroke. ESSENTIAL PRIMARY HYPERTENSION, TIA COMPARISON: None. TECHNIQUE: Real-time, grayscale, and color Doppler sonography of the carotid arteries was performed. Imaging reviewed in the transverse and longitudinal planes. All measurements were calculated based on NASCET criteria. FINDINGS: Antegrade flow is seen in the bilateral vertebral arteries. The brachial pressures are hemodynamically similar. Minimal calcified plaque within the bilateral carotid bulbs. The peak systolic velocity within the right ICA is 78 cm/s. The right systolic ratio is 1.0. The peak systolic velocity within the left ICA is 108 cm/s. The left systolic ratio is 1.5. IMPRESSION: No hemodynamically significant stenosis seen within the carotid arteries. Electronically signed by: Slick Watkins M.D. 11/18/2017 10:31 AM Dictated Date/Time: 11/18/2017 10:25 AM
== END | disposition home or self-care (01) ==
LOC: C.RAD 07:40
PROVIDERS: ATTEND Family Medicine
DX: I10 Essential (primary) hypertension (principal); G45.9 Transient cerebral ischemic attack, unspecified